=== PATIENT | female | born 1990 | race Two or more races ===

== ENCOUNTER 2020-09-21 16:13 | Inpatient (IN) | payer OTHER ==
[~2020-09-21] VITALS: Ht 162.6 cm; Wt 62.2 kg
[2020-09-21] MEDS ORDERED: SODIUM CHLORIDE 0.9% 1,000 ML IV ONE ×2 (16:45)
[2020-09-21] MEDS ORDERED: SODIUM CHLORIDE 0.9% 1,750 ML IV ONE (16:45)
[2020-09-21] MEDS ORDERED: cefTRIAXone 1GM/50ML D5W 50 ML IV ONE ×2 (17:00→22:30)
[2020-09-21 17:04] LABS: Basophils # (auto) 0 10 ^3/uL (0-0.2); Basophils % (auto) 0.1 % (0.0-2.0); Eosinophils # (auto) 0 10 ^3/uL (0-0.8); Eosinophils % (auto) 0.2 % (0.0-7.0); Hematocrit 38.8 % (36.0-46.0); Hemoglobin 12.9 g/dL (12.2-16.2); Lymphocytes # (auto) 0.6 10 ^3/uL (0.4-5.4); Lymphocytes % (auto) 5.8 % (10.0-50.0); Mean Corpuscular Hemoglobin 29.6 pg (28.0-32.0); Mean Corpuscular Hgb Conc. 33.3 g/dL (32.0-36.0); Mean Corpuscular Volume 88.9 fL (80.0-100.0); Monocytes # (auto) 0.6 10 ^3/uL (0-1.3); Monocytes % (auto) 5.4 % (0.0-12.0); Neutrophils # (auto) 9.7 10 ^3/uL (1.6-8.6); Neutrophils % (auto) 88.5 % (37.0-80.0); Platelet Count (auto) 166 10^3/uL (140-450); Red Blood Cells 4.37 10^6/uL (4.0-5.20); Red Cell Distribution Width 14.6 % (11.8-14.3); White Blood Cell 10.9 10^3/uL (4.4-10.8)
[2020-09-21 17:10] LABS: Albumin 3.8 g/dL (3.4-5.0); Calcium 8.9 mg/dL (8.5-10.1); Potassium 3.9 mmol/L (3.5-5.1)
[2020-09-21 17:11] LABS: Urine Bacteria FEW /hpf (None Seen); Urine Blood TRACE /uL (Negative); Urine Mucus FEW (None Seen); Urine Specific Gravity 1.019 (1.001-1.035); Urine WBC 16 /hpf (0 - 5)
[2020-09-21] MEDS ORDERED: ACETAMINOPHEN 325 MG TAB PO ONE ×2 (17:11→17:15)
[2020-09-21 17:20] LABS: BUN/Creatinine Ratio 11.9; Bilirubin, Total 0.8 mg/dL (0.2-1.0); Total Protein 7.6 g/dL (6.4-8.2)
[2020-09-21 17:24] LABS: Alcohol, Urine < 3.0 mg/dL (0-10); Amphetamine Screen, Urine POSITIVE (NEGATIVE); Barbiturate Scree,Urine NEGATIVE (NEGATIVE); Benzodiazephine Screen, Urine NEGATIVE (NEGATIVE); Cannabinoid Screen, Urine POSITIVE (NEGATIVE); Cocaine Screen, Urine NEGATIVE (NEGATIVE); Opiate Scree,Urine NEGATIVE (NEGATIVE); Phencyclidine Screen, Urine NEGATIVE (NEGATIVE)
[2020-09-21] MEDS ORDERED: MORPHINE SULF INJ 2 MG/ML SYRINGE 1ML IV PRN (19:00)
[2020-09-21] MEDS ORDERED: NITROGLYCERIN 0.4 MG SL TAB SL PRN (19:00)
[2020-09-21 21:43] VITALS: BP 101/63
[2020-09-21 22:00] VITALS: BP 101/63
[2020-09-21] MEDS ORDERED: IBUP800T27 PO (23:35)
[2020-09-21] MEDS: D5W/SOD CHLO 0.9% 1,000 ML IV SCH (23:40)
[2020-09-22] MEDS: MORPHINE SULF INJ 2 MG/ML SYRINGE 1ML IV PRN ×3 (01:23→16:35)
[2020-09-22 05:00] VITALS: BP 125/66
[2020-09-22] MEDS: ACETAMINOPHEN 325 MG TAB PO PRN ×2 (05:37→16:36)
[2020-09-22 08:24] VITALS: BP 103/54
[2020-09-22] MEDS: D5W/SOD CHLO 0.9% 1,000 ML IV SCH (08:30)
[2020-09-22] MEDS ORDERED: cefTRIAXone 1GM/50ML D5W 50 ML IV ONE (11:15)
[2020-09-22] MEDS: SODIUM CHLORIDE 0.9% 1,000 ML IV SCH ×2 (12:10→18:40)
[2020-09-22 12:54] VITALS: BP 109/53
[2020-09-22] MEDS: HYDROcodone-ACET 5/325MG TAB PO PRN ×2 (14:53→23:13)
[2020-09-22 17:00] VITALS: BP 116/78
[2020-09-22 22:00] VITALS: BP 96/44
[2020-09-23] MEDS: SODIUM CHLORIDE 0.9% 1,000 ML IV SCH ×4 (01:54→20:44)
[2020-09-23] MEDS: MORPHINE SULF INJ 2 MG/ML SYRINGE 1ML IV PRN ×2 (02:25→18:18)
[2020-09-23 05:06] VITALS: BP 110/63
[2020-09-23] MEDS: cefTRIAXone 1GM/50ML D5W 50 ML IV SCH (08:30)
[2020-09-23 10:00] VITALS: BP 109/63
[2020-09-23] MEDS: HYDROcodone-ACET 5/325MG TAB PO PRN ×2 (10:57→22:17)
[2020-09-23 14:00] VITALS: BP 92/40
[2020-09-23 17:00] VITALS: BP 104/40
[2020-09-23 22:00] VITALS: BP 111/64
[2020-09-24] MEDS: MORPHINE SULF INJ 2 MG/ML SYRINGE 1ML IV PRN (03:54)
[2020-09-24] MEDS: SODIUM CHLORIDE 0.9% 1,000 ML IV SCH ×3 (04:33→17:20)
[2020-09-24 05:00] VITALS: BP 121/64
[2020-09-24 05:52] LABS: Basophils # (auto) 0 10 ^3/uL (0-0.2); Basophils % (auto) 0.3 % (0.0-2.0); Eosinophils # (auto) 0.1 10 ^3/uL (0-0.8); Eosinophils % (auto) 1.5 % (0.0-7.0); Hematocrit 33.7 % (36.0-46.0); Hemoglobin 11.5 g/dL (12.2-16.2); Lymphocytes # (auto) 1.2 10 ^3/uL (0.4-5.4); Lymphocytes % (auto) 20.2 % (10.0-50.0); Mean Corpuscular Volume 88.1 fL (80.0-100.0); Monocytes # (auto) 0.6 10 ^3/uL (0-1.3); Monocytes % (auto) 10.6 % (0.0-12.0); Neutrophils % (auto) 67.4 % (37.0-80.0); Platelet Count (auto) 133 10^3/uL (140-450); Red Blood Cells 3.82 10^6/uL (4.0-5.20); Red Cell Distribution Width 14.6 % (11.8-14.3)
[2020-09-24] MEDS: HYDROcodone-ACET 5/325MG TAB PO PRN ×2 (08:09→17:25)
[2020-09-24] MEDS: cefTRIAXone 1GM/50ML D5W 50 ML IV SCH (08:53)
[2020-09-24 09:00] VITALS: BP 133/73
[2020-09-24 13:00] VITALS: BP 119/68
[2020-09-24 16:45] VITALS: BP 139/68
== END 2020-09-24 18:00 | disposition home or self-care (01) | DRG 463 ==
LOC: ER 16:15 → TELE 18:47 → TELE-WESTW 21:43 → TELE-EAST 09-22 02:30
PROVIDERS: ADMIT Internal Medicine; ATTEND Family Medicine
DX: N10 Acute pyelonephritis (principal); U07.1 COVID-19; F12.90 Cannabis use, unspecified, uncomplicated; F15.10 Other stimulant abuse, uncomplicated; N20.0 Calculus of kidney; E86.0 Dehydration; Z87.440 Personal history of urinary (tract) infections
CPT/HCPCS: 36415; 71045; 74176; 80053; 80307; 81001; 81025; 85025; 87086; 87426; 96361; 96365; 96375; G0378; J0696; J7042